=== PATIENT | male | born 1965 | race Caucasian/White ===

== ENCOUNTER → 2016-06-15 | Day surgery (SDC) | payer MEDICAID ==
[~2016-06-15] MED LIST: ALBUTEROL-200 PUFFS/ IH; AMITRIPTYLINE 225 MG PO; AMLO5TAB PO; ATENOLOL25 MG PO; BUPROPION HCL75 MG PO; BUSPAR 10MG TAB10 MG PO; CYCLOBENZAPRINE10 MG PO; DOCUSATE SODIU100 MG PO; ESCITALOPRAM10 M1 PO; FLEXERIL10 MG PO; GABAPENTIN300 M1 PO; HYDROCODONE1 TABLET PO; INDERAL 20MG. T20 MG PO; LASIX 20MG. TAB20 MG PO; LEXAPRO 10 MG T10 MG PO; LISINOPRIL 5MG T5 MG PO; LORTAB 5/500 501 TAB PO; LOVASTATIN20 MG PO; MEDROL 4MG. DOSE4 MG PO; MELOXICAM15 MG PO; OXYCODONE15 MG PO; PERCOCET 325 MG1 TA3 PO; PERCOCET1 TA1 PO; POTASSIUM CHLO20 ME2 PO; QUETIAPINE FUMA25 MG PO; SILENOR3 MG PO; SINGULAIR 10 MG10 MG PO; TIZANIDINE HCL 44 MG PO
--- NOTE | 2016-06-15 14:22 | Pain Management SOAP Note ---
SOAP Note Pain Clinic Subjective: This patient is a pleasant 50-year-old white male who we are treating for degenerative disc disease of lumbar spine with lumbar radiculopathy symptoms. Also degenerative disc disease of the cervical spine with post laminectomy syndrome of the cervical spine with cervical radiculopathy symptoms. His pain pump trial was denied. He currently was decreased to Percocet 10 mg 3 times a day. Patient says he took his medicine this morning and he is out a medication now. His urine drug screen today is negative. We will sent for confirmation. If appropriate then we will refill his Percocet 10 mg 3 times a day. If not appropriate then we will no longer give him any oral narcotics. Objective: Alert and oriented 3 in no acute distress. Patient has a normal gait. Motor strength of the lower extremities is 5 over 5. There is no gross sensory deficit. Assessment: Since this patient's urine drug screen was negative for Percocet.We will sent for confirmation. If appropriate then we will refill his Percocet 10 mg 3 times a day. If not appropriate then we will no longer give him any oral narcotics. Ravindra is appropriate, [facility] number [phone]. We will appeal the denial on pain pump trial as I do believe this patient would benefit from targeted drug delivery. at [id number]
--- NOTE | 2016-06-15 14:22 | Pain Management SOAP Note ---
SOAP Note Pain Clinic Subjective: This patient is a pleasant 50-year-old white male who we are treating for degenerative disc disease of lumbar spine with lumbar radiculopathy symptoms. Also degenerative disc disease of the cervical spine with post laminectomy syndrome of the cervical spine with cervical radiculopathy symptoms. His pain pump trial was denied. He currently was decreased to Percocet 10 mg 3 times a day. Patient says he took his medicine this morning and he is out a medication now. His urine drug screen today is negative. We will sent for confirmation. If appropriate then we will refill his Percocet 10 mg 3 times a day. If not appropriate then we will no longer give him any oral narcotics. Objective: Alert and oriented 3 in no acute distress. Patient has a normal gait. Motor strength of the lower extremities is 5 over 5. There is no gross sensory deficit. Assessment: Since this patient's urine drug screen was negative for Percocet.We will sent for confirmation. If appropriate then we will refill his Percocet 10 mg 3 times a day. If not appropriate then we will no longer give him any oral narcotics. Ravindra is appropriate, [facility] number [id number]. We will appeal the denial on pain pump trial as I do believe this patient would benefit from targeted drug delivery. at [id number]
== END ==
LOC: PM 08:05
DX: Z53.9 Procedure and treatment not carried out, unspecified reason (principal)

== ENCOUNTER → 2016-12-04 | Day surgery (SDC) | payer MEDICAID ==
[~2016-12-04] VITALS: Ht 175.3 cm; Wt 112.0 kg
[2016-12-04] VITALS (10 sets, daily range): BP systolic 129–162; BP diastolic 52–99
[~2016-12-04] MED LIST changes: +ADIPEX-P37.5 M2 PO
--- NOTE | 2016-12-04 12:16 | Procedure Note ---
Procedure detail Date of procedure: 12/04/16 Anesthesiologist: Keshawn Crook M.D. Complications: None Pre-procedure diagnosis: Degenerative disc disease of the cervical spine multiple levels with post laminectomy syndrome of the cervical spine and cervical radiculopathy symptoms. Degenerative disease of lumbar spine with lumbar radicular symptoms. Post-procedure diagnosis: Same Indications for procedure: This patient is a pleasant 51-year-old white male who we are treating for neck pain and low back pain with post laminectomy syndrome 2 of the cervical spine. He has failed all conservative therapy including physical therapy, injections, oral narcotics and previous surgery. He has had a successful neuropsychological evaluation. He presents for intrathecal pump trial today. We will do an intrathecal pump trial with fentanyl 50 g single shot. He has been off his oral medicine for 3 days. Procedure detail: Informed consent was obtained and the risk and benefits of the procedure was explained to the patient. The patient was taken to the procedure room. He was prepped and draped in sterile fashion. C-arm fluoroscopy was used to view the lumbar spine. The skin and septated tissues were anesthetized using lidocaine. A 17-gauge spinal needle was inserted and advanced very easily into the L4-L5 interspace until clear CSF was obtained. After this intrathecal catheter was inserted very easily to the T10 vertebral body. We were able to withdraw clear CSF through the catheter. The catheter was secured in place the patient was taken to recovery in stable condition. He tolerated the procedure well with no complications. After 1 set of vitals the patient received a one-time bolus of fentanyl 50 g over 5 minutes. The patient was reevaluated after 2 hours. He said his pain score is down to a 1 out of 10. He does feel some slight tingling in his fingers. He did have some itching which was relieved by Benadryl by mouth. He is 80-90 percent better. He is able to turn his head has minimal neck pain and minimal back pain. He has much more functional. This is a successful pump trial. Physical therapy worked with the patient's post procedure and there is great functional improvement. The catheter was discontinued and a Band-Aid was placed. The patient was discharged home neurologically intact with good relief of his pain symptoms. Plan and disposition: The patient was discharged home. He is to call us if he has any side effects or signs of oversedation. He and his family were counseled on side effects and signs of oversedation. He is not to start his pain medicine until tomorrow. This was a successful pump trial also we will plan on permanent placement. After approval we will plan on permanent placement with intrathecal Dilaudid 1 mg per mL to start at 0.1 mg per day. Catheter entry will be at L4-L5 and catheter tip will be at T8-T10. at 1207
== END ==
LOC: PM 09:12
PROC: 3E0R3BZ Introduction of Anesthetic Agent into Spinal Canal, Percutaneous Approach (ICD-10-PCS; principal; 2016-12-04)
PROC: 3E0R33Z Introduction of Anti-inflammatory into Spinal Canal, Percutaneous Approach (ICD-10-PCS; 2016-12-04)
DX: M51.16 Intervertebral disc disorders with radiculopathy, lumbar region (principal); M50.10 Cervical disc disorder with radiculopathy, unspecified cervical region; M96.1 Postlaminectomy syndrome, not elsewhere classified

== ENCOUNTER 2017-03-16 13:03 | Day surgery (SDC) | payer MEDICAID ==
[~2017-03-16] VITALS: Ht 172.7 cm; Wt 108.9 kg
[2017-03-16 13:23] VITALS: BP 147/89
[2017-03-16 13:45] VITALS: BP 136/79; BP 147/89
--- NOTE | 2017-03-16 13:51 | Procedure Note ---
Procedure detail Date of procedure: 03/16/17 Anesthesiologist: Evan Maldonado Complications: None Pre-procedure diagnosis: Degenerative disease lumbar spine multiple levels. Cervical post laminectomy syndrome. Lumbar radiculopathy symptoms. Post-procedure diagnosis: Same. Indications for procedure: Very pleasant 51-year-old white male that we are treating for chronic low back pain as well as bilateral hip and leg radiculopathy symptoms. Also, cervical neck pain with cervical radiculopathy symptoms secondary to post laminectomy syndrome cervical spine. We are manage the patient currently with intrathecal pain pump hydromorphone 1 mg/mL. His current rate is 0.3 mg per day. His PTC of 0.03 mg 4 times a day. Patient is complaining of extreme point tenderness over the RIGHT SI joint. We discussed RIGHT sacroiliitis. We will set him up for RIGHT SI joint injection. Also, patient complaining of some overall joint pain as well as cervical spine pain at times. We will increase his rate today. Procedure detail: Details of the procedure explained to the patient. The patient taken to procedure room and placed in a sitting position on the fluoroscopy table. The area over the pump was cleansed using chlorhexidine as a cleansing solution. The pump was accessed with ease using a 22-gauge needle from the refill kit. 7 mL of fluid was removed and discarded properly. The pump was then filled with 20 mL of hydromorphone 1 mg/mL. The pump was then interrogated. The daily rate was increased to 0.45 mg per day. Objective: Patient's awake alert oriented 3. In acute distress. Flexion extension lumbar spine somewhat guarded secondary to pain. Deep tendon reflexes upper lower extremities normal. Motor strength upper lower extremities normal. There is no gross sensory deficit. Gait is normal. Plan and disposition: Patient tolerated the procedure without difficulty. Return to see us as needed. His rate was increased today as noted above. We will set him up for RIGHT SI joint injection. at 1571
[2017-03-16 14:18] VITALS: BP 147/89
== END 2017-03-16 14:10 | disposition home or self-care (01) ==
LOC: PM 13:03
DX: M51.16 Intervertebral disc disorders with radiculopathy, lumbar region (principal); M96.1 Postlaminectomy syndrome, not elsewhere classified

== ENCOUNTER 2017-04-20 13:43 | Day surgery (SDC) | payer MEDICAID ==
[~2017-04-20] VITALS: Ht 172.7 cm; Wt 106.6 kg
[2017-04-20 13:51] VITALS: BP 114/55
[2017-04-20 14:26] VITALS: BP 114/55
[2017-04-20 14:27] VITALS: BP 134/69
[2017-04-20 14:41] VITALS: BP 158/82
--- NOTE | 2017-04-20 14:42 | Procedure Note ---
Procedure detail Date of procedure: 04/20/17 Anesthesiologist: Evan Maldonado Complications: None Pre-procedure diagnosis: Degenerative disc disease lumbar spine multiple levels. Lumbar post laminotomy syndrome. RIGHT sacroiliitis. Post-procedure diagnosis: Same. Indications for procedure: Very pleasant 51-year-old white male that returns our procedure clinic today for intrathecal pain pump refill. Patient independent very well with his intrathecal pain pump. However, he is complaining of some low back pain that he describes as constant, dull, aching. Also write buttock pain that he describes sharp, stabbing. His intrathecal pain pump consist of hydromorphone 1 mg/mL. Is rated currently 0.45 mg per day. We will change his concentration to hydromorphone 2 mg/mL. We will add bupivacaine 5 mg/mL. His rate will be increased to 0.65 mg per day. Also, we will call on gabapentin 800 mg 1 by mouth twice a day. Tramadol 50 mg 1 by mouth daily at bedtime for 14 days. Objective: Patient's awake alert oriented 3. In acute distress. Flexion extension lumbar spine somewhat guarded secondary to pain. Deep tendon reflexes upper lower extremities normal. Motor strength upper and lower extremities normal. There is no gross sensory deficit. Gait is normal. Procedure detail: Details of the procedure explained to the patient. The patient taken to procedure room and placed in the prone position. Their without intrathecal pain pump and RIGHT SI joint was cleansed using chlorhexidine as cleansing solution. The RIGHT SI joint was accessed with ease using 22-gauge final needle. Contrast dye was injected to confirm needle placement. 3 mL of 0.25 percent Marcaine +3 mL 1 percent lidocaine and 40 mg of Depo-Medrol was injected into the lower one third of the RIGHT SI joint. The intrathecal pain pump was accessed with ease using 20-gauge needle, refill kit. Scant amount of solution was withdrawn and started abruptly. The pump was then filled with 20 mL of hydromorphone 2 mg/mL and bupivacaine 5 mg/mL. The pump was interrogated. The rate was increased to 0.65 mg per day. Patient tolerated procedure without difficulty. Plan and disposition: Patient was evaluated 10 minutes post procedure. He is doing very well. He reports one or percent improvement terms her RIGHT hip pain. Return to see us on an as-needed basis. at 0370
== END 2017-04-20 14:53 | disposition home or self-care (01) ==
LOC: PM 13:43
PROC: 3E0U33Z Introduction of Anti-inflammatory into Joints, Percutaneous Approach (ICD-10-PCS; principal; 2017-04-20)
PROC: 3E0U3BZ Introduction of Anesthetic Agent into Joints, Percutaneous Approach (ICD-10-PCS; 2017-04-20)
DX: M51.36 Other intervertebral disc degeneration, lumbar region (principal); M96.1 Postlaminectomy syndrome, not elsewhere classified; M46.1 Sacroiliitis, not elsewhere classified
CPT/HCPCS: G0260; J1040

== ENCOUNTER → 2017-05-18 | Day surgery (SDC) | payer MEDICAID ==
[~2017-05-18] VITALS: Ht 172.7 cm; Wt 108.9 kg
[2017-05-18 14:51] VITALS: BP 117/64
[2017-05-18 15:22] VITALS: BP 117/64
[2017-05-18 15:25] VITALS: BP 144/84
--- NOTE | 2017-05-18 15:40 | Procedure Note ---
Procedure detail Date of procedure: 05/18/17 Anesthesiologist: Evan Maldonado Complications: None Pre-procedure diagnosis: Degenerative disc disease lumbar spine with levels. Lumbar radiculopathy symptoms. Lumbar postlaminectomy syndrome. Post-procedure diagnosis: Same. Indications for procedure: Very pleasant 51-year-old white male that returns our procedure clinic today for intrathecal pain pump refill. Patient's pump currently contains hydromorphone 2 mg/mL. Also, bupivacaine 5 mg/mL. Patient complaining today of bilateral hip and leg radicular symptoms as well as lumbar back pain at times. He describes the pain as constant, dull, aching. He rates the low back pain 6 out of 10. Patient states pain intensifies with a degree of walking. Sitting for any length of time intensifies bilateral leg radicular symptoms. We will increase his concentration of hydromorphone today to 5 mg/mL. Objective: Patient's awake alert oriented 3. In no acute distress. Flexion extension lumbar spine somewhat guarded secondary to pain. Deep tendon reflexes upper lower extremities normal. Motor strength upper lower extremities normal. There is no gross sensory deficit. Gait is normal. Positive straight leg raise test 30 degrees bilaterally. Procedure detail: Details of procedure is going to the patient. The patient taken to procedure room and placed in the sitting position. The area over the pump was cleansed using chlorhexidine as a cleansing solution. Pump was accessed lesions in 22- gauge needle from the axis kit. 4 mL of solution was withdrawn from the pump and discarded appropriate. The pump was infiltrated 20 mL of hydromorphone 5 mg/mL and bupivacaine 5 mg/mL. The pump was interrogated. The rate was increased to 1 mg per day. Patient tolerated the procedure without difficulty. There is no complications. Plan and disposition: Patient was evaluated 10 minutes post procedure. He doesn't cooperative return to see us in the pain clinic for evaluation. at 1540
[2017-05-18 15:47] VITALS: BP 133/72
== END ==
LOC: PM 14:45
DX: M51.16 Intervertebral disc disorders with radiculopathy, lumbar region (principal); M96.1 Postlaminectomy syndrome, not elsewhere classified